=== PATIENT | male | born 1950 | race Hispanic/Latino ===

== ENCOUNTER → 2017-03-29 | Outpatient (CLI) | payer BC, MEDICARE ==
[~2017-03-29] MED LIST: ALLO300T2 PO; ASPI-1005 PO; EZET10 PO; FOLI-74 PO; GEMF600T3 PO; LISI1TAB11 PO; OMEG300C3 PO; REGADENOSON 0.4 MG/5 ML PF SYG IVP SCH; ROSU20TA PO; UBID10CA6 PO
== END | disposition home or self-care (01) ==
LOC: RAH 08:14
PROVIDERS: ATTEND Family Medicine
DX: R06.02 Shortness of breath (principal)
CPT/HCPCS: 78452; 93017; 96374; A9500 ×2; J2785